=== PATIENT | male | born 1960 | race Hispanic/Latino ===

== ENCOUNTER 2017-04-24 10:35 | Outpatient (CLI) | payer MEDICARE ==
--- NOTE | 2017-04-24 12:09 | XRay Report ---
X-RAY BILATERAL ELBOW THREE VIEWS EACH: 04/24/17 CLINICAL: Bilateral elbow pain. FINDINGS: Right: Severe osteoarthritis of the radiohumeral and ulnohumeral joints. Narrowing of the joint spaces. 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 Large osteophytes. No joint effusion. No fracture or dislocation. Mild soft tissue swelling at the olecranon. Left:Severe osteoarthritis of the radiohumeral and ulnohumeral joints. The degree of arthritis is greater than on the right side. The joint spaces are narrowed with very large osteophytes. No joint effusion. No fracture or dislocation. Mild soft tissue swelling at the olecranon. 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
== END 2017-04-24 10:36 | disposition home or self-care (01) ==
LOC: SPVIMAG 10:35
PROVIDERS: ATTEND Orthopaedic Surgery Sports Medicine
DX: M19.022 Primary osteoarthritis, left elbow (principal); M19.021 Primary osteoarthritis, right elbow